=== PATIENT | male | born 1960 | race Caucasian/White ===

== ENCOUNTER 2017-12-03 08:43 | Day surgery (SDC) | payer OTHER ==
[2017-12-03] MEDS ORDERED: FENTAnyl 50 MCG/ML VIAL (10:32)
[2017-12-03] MEDS ORDERED: MIDAZOLAM 1 MG/ML 2 ML INJ ×3 (10:32)
== END 2017-12-03 16:51 | disposition home or self-care (01) ==
LOC: GIL 08:43
DX: Z12.11 Encounter for screening for malignant neoplasm of colon (principal); D12.4 Benign neoplasm of descending colon; K64.8 Other hemorrhoids; K57.30 Diverticulosis of large intestine without perforation or abscess without bleeding; K64.4 Residual hemorrhoidal skin tags; E11.9 Type 2 diabetes mellitus without complications
CPT/HCPCS: 45380; 82962; 88305